=== PATIENT | female | born 1995 | race Caucasian/White ===

== ENCOUNTER 2021-11-17 15:14 | Outpatient (CLI) | payer BC, SELFPAY ==
[2021-11-17 17:23] LABS: Hepatitis B Surface Antigen* Negative (Negative)
[2021-11-17 17:33] LABS: HIV 1/2/P24 Combo Screen* Negative (Negative)
[2021-11-17 17:40] LABS: Hepatitis C Virus Antibody* Negative (Negative)
[2021-11-17 19:52] LABS: Chlamydia DNA Amplified* NOT DETECTED (No Detected); GC DNA Amplified* NOT DETECTED (No Detected)
[2021-11-19 18:50] LABS: Rapid Plasma Reagin (RPR) Non Reactive (Non Reactive)
[2021-11-19 23:35] LABS: Rubella Antibody IgG 15.8 IU/mL
== END 2021-11-17 15:15 | disposition home or self-care (01) ==
PROVIDERS: Visit Provider Advanced Practice Midwife
DX: Z34.91 Encounter for supervision of normal pregnancy, unspecified, first trimester (principal); Z3A.08 8 weeks gestation of pregnancy
CPT/HCPCS: 76817; 86592; 86703; 86762; 86787; 86803; 86850; 86900; 86901; 87086; 87340; 87491; 87591

== ENCOUNTER 2022-02-09 12:49 | Outpatient (CLI) | payer BC, SELFPAY ==
--- NOTE | 2022-02-09 13:00 | CRLHL7_ITS ---
For Patients: As a result of the Century Cures Act, medical imaging exams and procedure reports are released immediately into your electronic medical record. You may view this report before your referring provider. If you have questions, please contact your health care provider. INDICATION: Evaluate anatomy. COMPARISON: 11/17/2021 TECHNIQUE: Real time adams scale imaging of the fetus was performed as well as color Doppler analysis of the umbilical vessels. FINDINGS: Sonographic imaging demonstrates a single living intrauterine gestation. Fetus demonstrates a regular cardiac rate of 157 beats per minute. Fetus has a variable position. The placenta lies fundal without evidence of placenta previa. The tip of the placenta is 14.2 cm from the internal cervical os. Amniotic fluid volume appears normal. Single deepest vertical pocket: 5.6 cm. The cervix is closed and measures 4.0 cm in length. The composite ultrasound gestational age is calculated at 20 weeks 1 day with an estimated sonographic due date of 06/28/2022. The estimated weight is 350 grams which lies at the 42nd %. The following biometric measurements were obtained: Biparietal diameter: 4.9 cm/20 weeks 6 days 68th% Head circumference: 17.5 cm/20 weeks 0 days 25th% Abdominal circumference: 15.0 cm/20 weeks 2 days 38th% Femur length: 3.4 cm/20 weeks 4 days 46th% The HC/AC ratio measures: 1.17 range (1.07-1.25) On anatomic survey, there is a normal appearance of the cerebral ventricles, cavum septi pellucidi, cisterna magna and cerebellum. The nose, lips, and facial profile appear normal. The cervical, thoracic and lumbar spine are well visualized and appear normal. There is a normal four-chamber heart view and the left and right ventricular outflow tracts appear normal. The diaphragm and stomach appear normal. The kidneys and bladder also appear normal. There is a normal three-vessel cord and cord insertion site. The four extremities appear normal. IMPRESSION: Normal OB ultrasound exam with concordance of clinical and sonographic dating. No intrinsic abnormalities noted on anatomic survey. Dictated by Elio Key MD @ 02/10/2022 9:53:26 AM (Electronically Signed)
== END 2022-02-09 12:50 | disposition home or self-care (01) ==
LOC: US 12:50
PROVIDERS: Visit Provider Obstetrics & Gynecology
DX: Z34.92 Encounter for supervision of normal pregnancy, unspecified, second trimester (principal); Z3A.20 20 weeks gestation of pregnancy
CPT/HCPCS: 76805

== ENCOUNTER 2022-04-10 10:59 | Outpatient (CLI) | payer BC, SELFPAY ==
[2022-04-12 07:58] LABS: Rapid Plasma Reagin (RPR) Non Reactive (Non Reactive)
== END 2022-04-10 11:00 | disposition home or self-care (01) ==
LOC: NFLDREF 11:00
PROVIDERS: Visit Provider Obstetrics & Gynecology
DX: Z34.90 Encounter for supervision of normal pregnancy, unspecified, unspecified trimester (principal)
CPT/HCPCS: 86592

== ENCOUNTER 2022-05-05 08:13 | Outpatient (CLI) | payer BC, SELFPAY ==
--- NOTE | 2022-05-05 08:15 | CRLHL7_ITS ---
For Patients: As a result of the Cures Act, medical imaging exams and procedure reports are released immediately into your electronic medical record. You may view this report before your referring provider. If you have questions, please contact your health care provider. INDICATION: GROWTH, COVID IN COMPARISON: 02/09/2022 TECHNIQUE: Real time adams scale imaging of the fetus was performed. FINDINGS: Sonographic imaging demonstrates a single living intrauterine gestation. Fetus demonstrates a regular cardiac rate of 152 beats per minute. Fetus has a breech position. The placenta lies anteriorly. Amniotic fluid volume appears normal and there is a single deepest vertical pocket: 5.8 cm. The estimated weight is 1996gm which lies at the 39th %. On the prior OB ultrasound exam dated 02/09/2022 the estimated weight was at the 42nd%. BPD 32nd percentile. HC 18th percentile. AC 44th percentile. FL 45th percentile. The HC/AC ratio measures 1.04 range (0.96-1.12). IMPRESSION: Sonographic gestational age 32 weeks 4 days and sonographic due date of 06/26/2022. Good correlation with dates. Normal interval growth. Estimated weight 39th percentile. Abdominal circumference 44th percentile. Dictated by Elio Key MD @ 05/05/2022 11:10:41 AM (Electronically Signed)
== END 2022-05-05 08:14 | disposition home or self-care (01) ==
LOC: US 08:13
PROVIDERS: Visit Provider Obstetrics & Gynecology
DX: O98.513 Other viral diseases complicating pregnancy, third trimester (principal); U07.1 COVID-19; Z3A.32 32 weeks gestation of pregnancy
CPT/HCPCS: 76816

== ENCOUNTER 2022-06-02 13:00 | Outpatient (CLI) | payer BC, SELFPAY ==
--- NOTE | 2022-06-02 13:00 | CRLHL7_ITS ---
For Patients: As a result of the Century Cures Act, medical imaging exams and procedure reports are released immediately into your electronic medical record. You may view this report before your referring provider. If you have questions, please contact your health care provider. INDICATION: Growth, COVID in COMPARISON: 05/05/2022 TECHNIQUE: Real time adams scale imaging of the fetus was performed. FINDINGS: Sonographic imaging demonstrates a single living intrauterine gestation. Fetus demonstrates a regular cardiac rate of 157 beats per minute. Fetus has a breech position. The placenta lies anteriorly. Amniotic fluid volume appears normal and there is a single deepest vertical pocket: 6.7 cm. KITTY 20.7 cm. The estimated weight is 2941gm which lies at the 51st %. On the prior OB ultrasound exam dated 05/05/2022 the estimated weight was at the 39th%. BPD 41st percentile. HC 67th percentile. AC 78th percentile. FL 5th percentile. The HC/AC ratio measures 1.01 range (0.92-1.07). IMPRESSION: Sonographic gestational age 36 weeks 3 days and sonographic due date of 06/27/2022. Good correlation with dates. Normal interval growth. Estimated weight 51st percentile. Abdominal circumference 78th percentile. Dictated by Elio Key MD @ 06/02/2022 2:01:59 PM (Electronically Signed)
== END 2022-06-02 13:01 | disposition home or self-care (01) ==
LOC: US 13:01
PROVIDERS: Visit Provider Obstetrics & Gynecology
DX: O98.513 Other viral diseases complicating pregnancy, third trimester (principal); U07.1 COVID-19; Z3A.36 36 weeks gestation of pregnancy
CPT/HCPCS: 76816; 87081; 87653

== ENCOUNTER 2022-06-06 07:59 | Outpatient (CLI) | payer BC, SELFPAY ==
[2022-06-06 10:05] VITALS: PULSE 89; O2SAT 100
[2022-06-06 10:21] VITALS: BP 107/62; PULSE 82; PULSE 89; RESP 16; TEMP 37.2; O2SAT 100
--- NOTE | 2022-06-06 11:26 | PC.OBNST ---
NST Note NST Note Start: 06/06/22 10:01 Freq: ONCE Status: Active Protocol: Document 06/06/22 11:20 CUDDYH (Rec: 06/06/22 11:26 CUDDYH [id number]) NST Note 4 Para (# of births) 2 EDC 06/26/22 Gestational Age In Weeks & Days 37 Weeks & 1 Days Patient Presented with Complaint(s) of Other Other Complaints Here for scheduled cephalic version. Baby already flipped head down. Reactive Yes Appropriate for Gestational Age Yes RN Erendira Keen RN Date 06/06/22 Reactive Yes Appropriate for Gestational Age Yes BRYON Shea RNC Date 06/06/22 OB NST charge Yes Complete NST Note via Write Note Yes The provider's electronic signature indicates the NST is reactive/appropriate for gestational age. *Note to provider: If an addendum is required, open the patient's chart and click on the note under the Nurse/Allied Health tab.
== END 2022-06-06 11:20 | disposition home or self-care (01) ==
LOC: OB CLI 08:09 → OB 08:11
PROVIDERS: Visit Provider Obstetrics & Gynecology
DX: Z34.93 Encounter for supervision of normal pregnancy, unspecified, third trimester (principal)
CPT/HCPCS: 59025; 76815; 99211

== ENCOUNTER 2022-07-02 16:45 | Inpatient (IN) | payer BC, SELFPAY ==
[2022-07-02 16:50] VITALS: BMI 25.4
[2022-07-02 17:04] VITALS: BP 124/70; PULSE 86
[2022-07-02 17:05] VITALS: PULSE 88; O2SAT 96
[2022-07-02 17:06] VITALS: RESP 16; TEMP 37
--- NOTE | 2022-07-02 17:40 | W.PM.LDBA ---
Subjective History of Present Illness Time Seen by Provider: 17:40 Date Seen: 07/02/22 Narrative: Patient is being admitted to Labor and Delivery for induction of labor secondary to postdates gestation. She is a 27 year old at 40 6/7 weeks gestation. Her full history and physical was dictated on 06/21/2022 by VALERIA Case supervised by Josseline Renee CNM. Please see this for details. OB Problem List: 1. Nausea and vomiting. Unisom and Vit B6 no longer working. Zofran ordered at [facility]. 2. 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 Tearful about it at [facility] but declines therapy referral at this time. 3. Covid in , Growth u/s 32w: Breech. BPD 32%, HC 18%, AC 44%, FL 45 %, EFW 39% 36w: Breech. EFW 50.5% 4. Anemia, with Hb 10.8 at 29 weeks. Begin ferrous sulfate. 36wk Hgb = 11.1 5. Breech at 36 week US, RESOLVED ECV scheduled for 06/06: not done, baby cephalic on admission OB - Problem Based A/P Additional Plan (1) Post-dates : Status: Acute Plan The patient is esme irregularly, and has had documented cervical change since her last examination on Sunday. She no longer needs cervical ripening. Will manage expectantly overnight and begin pitocin infusion in the band saw operator. GBS negative. Blood type B positive. Delivery/Labor/Induction Plan Plan: induction (Begin pitocin infusion per protocol at 5:00 am.) Induction method: per pitocin protocol OB Exam Physical Exam Vital signs: Temp Pulse Resp BP Pulse Ox 98.6 F 86 16 124/70 96 07/02/22 17:06 07/02/22 17:04 07/02/22 17:06 07/02/22 17:04 07/02/22 17:05 Detailed Labor and Delivery Exam Patient Gravid: Yes Dilation (cm): 3 Effacement (%): 80 Cervix position: mid Consistency: soft Cervical ripeness score: 9 Contraction Frequency: irregular Contraction duration (sec): 60 Tachysystole: No Contraction intensity: Mild Fetus (Single) Station: -2 Amniotic Membrane Status: intact Heart Rate Baseline: 155 Monitor Accelerations: Present Monitor Decelerations: None Bridal Stylist Sales Consultant Variability: Moderate (6-25)
[2022-07-02 18:19] LABS: SARS PCR* Negative SARS-CoV-2 (Negative)
[2022-07-02 21:24] VITALS: BP 123/76; PULSE 83; RESP 16; TEMP 36.8
[2022-07-03] VITALS (40 sets, daily range): BP systolic 101–134; BP diastolic 55–79; PULSE 66–166; RESP 16; TEMP 36.5–37.3; O2SAT 91–100
[2022-07-03 05:21] LABS: Basophils Absolute Auto 0.01 K/uL (0.00-0.30); Basophils Percent Auto 0.1 % (0.0-3.0); Eosinophils Absolute Auto 0.22 K/uL (0.00-0.50); Eosinophils Percent Auto 3.2 % (0.0-7.0); Hematocrit 33.6 % (33.0-51.0); Hemoglobin* 11.3 gm/dL (12.0-16.0); Immature Granulocytes Abs Auto 0.02 K/uL (0.00-0.30); Immature Granulocytes Pct Auto 0.3 %; Lymphocytes Absolute Auto 1.66 K/uL (0.90-2.90); Lymphocytes Percent Auto 24.2 % (20-44); Mean Corpuscular HGB Conc 34 gm/dL (32-36); Mean Corpuscular Hemoglobin 28 pg (26-34); Mean Corpuscular Volume 83 fL (80-100); Monocytes Percent Auto 8.6 % (0.0-11.0); Neutrophils Absolute Auto 4.37 K/uL (1.7-7.0); Neutrophils Percent Auto 63.6 % (42.0-72.0); Platelet Count* 226 K/uL (140-440); Red Blood Count 4.05 m/uL (4.00-5.20); White Blood Count* 6.87 K/uL (4.50-11.00)
[2022-07-03 05:23] LABS: Slide Review Reflex No
[2022-07-03] MEDS: OXYTOCIN 30 unit/500 ML in NS 30 UNIT/500 ML BAG IVPB (05:28)
[2022-07-03] MEDS: LACTATED RINGERS 1000 ML 1,000 ML 125 ML IV ×2 (05:28→07:15)
--- NOTE | 2022-07-03 08:14 | PM.OBPNL ---
Subjective Time Seen by Provider: 07:45 Date Seen: 07/03/22 Objective Vital Signs: Last Vital Signs Temp 97.7 F 07/03/22 06:25 Pulse 86 07/03/22 06:25 Resp 16 07/03/22 06:25 BP 108/73 07/03/22 06:25 Pulse Ox 96 07/02/22 17:05 Pelvic Exam Dilation (cm): 3 Effacement (%): 75 Station: -2 Contractions Contraction intensity: Mild Assessment Station: -2 Heart Rate Baseline: 155 Monitor Accelerations: Present Monitor Decelerations: None Plan Plan: - Pitocin was started around 0530. Patient was at 2u but this was stopped due to some late deceleration. - Late decelerations resolved with IV bolus and repositioning. Patient is comfortable and not esme much without pitocin. She was asking about AROM as her previous babies were delivered within a few hours after AROM. - I checked her cervix and found head to be right oblique and compound presentation. digits were palpated on cervical exam. Digits were swept away away but still very close to head when assessed with ultrasound - Discussed with patient that fetus is not in an ideal position for AROM at this point. Will place her on left lateral decubitus position and restart pitocin again. - Will recheck in 4 hours
[2022-07-03] MEDS: LACTATED RINGERS 1000 ML 1,000 ML 500 ML IV (11:50)
[2022-07-03] MEDS: ROPIVACAINE 0.2% 100 ml 100 ML 12 MG EPIDURAL (12:31)
--- NOTE | 2022-07-03 12:36 | PM.ANBPRC ---
[facility] Medical History No significant past medical history Normal spontaneous vaginal delivery ?O80 - Encounter for full-term uncomplicated delivery (ICD-10) Pruritic urticarial papules and plaques of ?O26.86 - Pruritic urticarial papules and plaques of (PUPPP) (ICD-10) Second degree perineal laceration, delivered, current hospitalization ?O70.1 - Second degree perineal laceration during delivery (ICD-10) Spontaneous ?O03.9 - Complete or unspecified spontaneous without complication (ICD-10) Surgical History No history of previous surgery Family History Mother Endometrial cancer Maternal Grandfather CHF (congestive heart failure) Sister Healthy adult Sister Healthy adult Brother Healthy adult Father Healthy adult Social History Narrative: Does not drink alcohol Does not use illicit drugs Non-smoker SOCIAL?? Education:? bachelors?? 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 Partner: Edu - contractor and real estate? Lives with:? and kids?? Pets: none? Abuse:? Denies past/present?? Special Diet: Denies Ok with a blood transfusion:?yes?? Culture or jehovah's witness beliefs:? denies? RISK FACTORS?? Exercise Times/wk: lifting weights and running. nothing in the last few weeks due to nausea?? Depression/Anxiety: denies DREAD: 1??? PHQ 9: 4 Seat Belt Use: Routinely?? Smoking:? Denies past/present?? Alcohol/day:? Denies while ?? Caffeine:? currently only drinking decaf Drug Use: Denies past/present?? Chicken Pox:? Yes as a child?? MRSA:? Denies? Planning to breastfeed:?? yes, breastfed her other kids. Declines complications but both were tongue tied.?? Are you following a diet prescribed by a doctor: No Are you following a special diet: No Previous occupational history: therapy teacher Highest level of school completed/degree received: Bachelor's degree Smoking Status: Never smoker Second hand tobacco smoke exposure: No Non-prescribed substance use: denies use Caffeine: No (currently drinking decaf) Little interest or pleasure in doing things: not at all Feeling down, depressed, or hopeless: not at all Meds Home Medications and Allergies Home Medications Medication Instructions Recorded Confirmed Type aspirin 81 mg capsule 81 mg PO QDAY 05/15/22 07/02/22 History famotidine 20 mg tablet 20 mg PO QDAY 05/15/22 07/02/22 History pediatric multivitamin no.17 1 tab PO DAILY 06/02/22 07/02/22 History (Children's Chew Multivitamin tablet) Allergies Allergy/AdvReac Type Severity Reaction Status Date / Time amoxicillin Allergy Mild Rash Verified 06/28/22 09:15 metoclopramide AdvReac Intermediate Dystonia Verified 06/28/22 09:15 Results Labs Labs: Laboratory Results - last 24 hr 07/02/22 07/03/22 17:35 05:10 WBC 6.87 RBC 4.05 Hgb 11.3 L Hct 33.6 MCV 83 MCH 28 MCHC 34 RDW Coeff of Franc 13.0 Plt Count 226 Neut % (Auto) 63.6 Lymph % (Auto) 24.2 Bollinger % (Auto) 8.6 Eos % (Auto) 3.2 Baso % (Auto) 0.1 Neut # (Auto) 4.37 Lymph # (Auto) 1.66 Bollinger # (Auto) 0.60 Eos # (Auto) 0.22 Baso # (Auto) 0.01 SARS-CoV-2 (PCR) Negative SARS-CoV-2 Blood Type B Positive Antibody Screen NEGATIVE Vital Signs Vital Signs: Last Vital Signs Temp 98.1 F 07/03/22 12:14 Pulse 77 07/03/22 12:34 Resp 16 07/03/22 06:25 BP 111/59 L 07/03/22 12:34 Pulse Ox 100 07/03/22 12:31 Weight: 69.445 kg Height: 165.1 cm Anesthesia Procedures Epidural Insertion Start Time: 12:15 Stop Time: 13:15 Start Date: 07/03/22 Stop Date: 07/03/22 Reason for Block: procedure for pain Patient Position: sitting Performed By: Morro Carrillo Preanesthetic Checklist: IV checked, risks and benefits discussed, monitors and equipment checked, timeout performed and anesthesia consent Prep: DuraPrep Monitoring: blood pressure monitoring, continuous pulse oximetry and heart rate Approach: midline Vertebral Space: lumbar (1-5) Needle Type: Tuohy needle Injection Technique: continuous catheter Needle gauge: 17 Needle Length (cm): 10 cm Needle Insertion Depth (cm): 6 Catheter Gauge: 19 Catheter Type: multi-orifice Catheter at skin depth (cm): 10 Test Dose Result: negative and lidocaine 1.5% with epinephrine 1 to 200,000
[2022-07-03] MEDS: PHENYLEPHRINE 100 MCG/ML SYRINGE IVP (13:40)
--- NOTE | 2022-07-03 14:19 | W.PM.VAGDEL1 ---
Procedure Delivery date: 07/03/22 Procedure Done: Global Procedure Details: Courtney is a 27 year-old admitted on 07/02/2022 at 40 and 6/7 weeks gestation for elective induction of labor. Cervical exam on admission was 3 cm/80 % effaced/-3 station with membranes intact in vertex presentation. GBS neg. SROM occurred at 0825 on 07/03/2022 with clear fluid. There was a forebag noted at 1447, this was ruptured and thin meconium was noted at this time. Labor Analgesia: Epidural Pitocin: Yes Complete: 07/03/22 at 1348 Pushin07/03/22 at 1355 heart tones during second stage were cat II with intermittent variable and late deceleration during contractions At 1359 a viable female delivered in vertex OA presentation over intact perineum via spontaneous vaginal delivery. was placed on maternal abdomen. Cord was clamped and cut after a 30-60 second delay. Nose and mouth were bulb suctioned. Infant weight: Pending. 8 at 1 minute and 8 at 5 minutes. Shoulder dystocia: No. Nuchal cord: Yes/1 loop, reduced. Placenta delivered spontaneously and complete at 1401 with a 30 vessel cord. Placenta noted to have double membrane layer, will send for pathology. Complications: None. Mother and were stable after delivery. Laceration(s): 1st degree perineal, repaired with 2-0 chromic figure of 8. Estimated blood loss: 50 mL. Sponge and needles counts are correct. Mother and were stable at the time of this note.
[2022-07-04 04:30] VITALS: BP 106/70; PULSE 74; RESP 16; TEMP 37; O2SAT 95
[2022-07-04 07:03] LABS: Hemoglobin* 11.3 gm/dL (12.0-16.0)
[2022-07-04 08:03] VITALS: BP 104/64; PULSE 75; RESP 16; TEMP 36.4; O2SAT 97
--- NOTE | 2022-07-04 09:32 | PM.OBDSVD1 ---
DS: Providers Provider Date Seen: 07/04/22 Date of admission: 07/02/22 16:45 Primary care physician: Not a Local Provider Admitting Clinician: Tonya Elizalde MD Attending Physician on discharge: Josseline Renee CNM DS: Diagnosis Discharge Diagnosis (1) care and examination immediately after delivery: Status: Acute (2) Lactating mother: Status: Acute Exam Narrative: Exam Narrative: GENERAL APPEARANCE:? normal affect, alert, no distress MOOD:? appropriate CHEST:? clear to auscultation HEART:? regular rate and rhythm ABDOMEN:? soft, non-tender the uterine fundus is At Umbilicus, Midline and is appropriate for the stage of recovery. PERINEUM:? mild edema of the perineum, there is a Perineal Laceration,?1st degree, that is healing well. EXTREMITIES:? normal and no edema Const: Vital Signs, click to edit/add: Vital Signs - 24 hr 07/03/22 10:10 07/03/22 10:10 07/03/22 11:09 Temperature 98.2 F Pulse Rate 75 68 Pulse Rate [Left P ulse Oximeter] Respiratory Rate Blood Pressure 121/68 107/63 Blood Pressure [Ri ght Arm] Pulse Oximetry Oxygen Delivery Me thod 07/03/22 11:09 07/03/22 12:14 07/03/22 12:14 Temperature 98.1 F 98.1 F Pulse Rate 74 Pulse Rate [Left P ulse Oximeter] Respiratory Rate Blood Pressure 134/71 Blood Pressure [Ri ght Arm] Pulse Oximetry Oxygen Delivery Me thod 07/03/22 12:16 07/03/22 12:18 07/03/22 12:21 Temperature Pulse Rate Pulse Rate [Left P ulse Oximeter] Respiratory Rate Blood Pressure Blood Pressure [Ri ght Arm] Pulse Oximetry 100 91 100 Oxygen Delivery Me thod 07/03/22 12:26 07/03/22 12:27 07/03/22 12:28 Temperature Pulse Rate 84 90 Pulse Rate [Left P ulse Oximeter] Respiratory Rate Blood Pressure 119/57 L 122/59 L Blood Pressure [Ri ght Arm] Pulse Oximetry 100 91 Oxygen Delivery Me thod 07/03/22 12:30 07/03/22 12:31 07/03/22 12:32 Temperature Pulse Rate 74 80 Pulse Rate [Left P ulse Oximeter] Respiratory Rate Blood Pressure 116/55 L 116/60 Blood Pressure [Ri ght Arm] Pulse Oximetry 100 Oxygen Delivery Md thod 07/03/22 12:34 07/03/22 12:36 07/03/22 12:38 Temperature Pulse Rate 77 77 78 Pulse Rate [Left P ulse Oximeter] Respiratory Rate Blood Pressure 111/59 L 108/55 L 109/58 L Blood Pressure [Ri ght Arm] Pulse Oximetry Oxygen Delivery Md thod 07/03/22 12:40 07/03/22 12:46 07/03/22 12:50 Temperature Pulse Rate 75 68 67 Pulse Rate [Left P ulse Oximeter] Respiratory Rate Blood Pressure 109/61 111/57 L 112/60 Blood Pressure [Ri ght Arm] Pulse Oximetry Oxygen Delivery Md thod 07/03/22 12:56 07/03/22 13:01 07/03/22 13:14 Temperature Pulse Rate 72 75 75 Pulse Rate [Left P ulse Oximeter] Respiratory Rate Blood Pressure 101/55 L 108/63 106/59 L Blood Pressure [Ri ght Arm] Pulse Oximetry Oxygen Delivery Md thod 07/03/22 13:23 07/03/22 13:32 07/03/22 13:42 Temperature Pulse Rate 66 68 72 Pulse Rate [Left P ulse Oximeter] Respiratory Rate Blood Pressure 112/65 102/59 L 122/74 Blood Pressure [Ri ght Arm] Pulse Oximetry Oxygen Delivery Md thod 07/03/22 14:02 07/03/22 14:12 07/03/22 14:22 Temperature Pulse Rate 75 76 77 Pulse Rate [Left P ulse Oximeter] Respiratory Rate Blood Pressure 123/76 118/69 120/72 Blood Pressure [Ri ght Arm] Pulse Oximetry Oxygen Delivery Md thod 07/03/22 14:32 07/03/22 14:43 07/03/22 14:52 Temperature Pulse Rate 72 80 166 H Pulse Rate [Left P ulse Oximeter] Respiratory Rate Blood Pressure 114/71 118/67 129/79 Blood Pressure [Ri ght Arm] Pulse Oximetry Oxygen Delivery Md thod 07/03/22 15:02 07/03/22 15:12 07/03/22 15:22 Temperature Pulse Rate 74 70 72 Pulse Rate [Left P ulse Oximeter] Respiratory Rate Blood Pressure 119/65 117/67 114/65 Blood Pressure [Ri ght Arm] Pulse Oximetry Oxygen Delivery Me thod 07/03/22 15:32 07/03/22 15:51 07/03/22 19:59 Temperature 97.8 F Pulse Rate 87 95 Pulse Rate [Left P ulse Oximeter] 90 Respiratory Rate 16 Blood Pressure 113/64 110/64 Blood Pressure [Ri ght Arm] 108/69 Pulse Oximetry 96 Oxygen Delivery Me thod Room Air 07/03/22 23:41 07/04/22 04:30 07/04/22 08:03 Temperature 98.7 F 98.6 F 97.6 F Pulse Rate Pulse Rate [Left P ulse Oximeter] 69 74 75 Respiratory Rate 16 16 16 Blood Pressure Blood Pressure [Ri ght Arm] 117/69 106/70 104/64 Pulse Oximetry 97 95 97 Oxygen Delivery Me thod Room Air Room Air Room Air OB - DS: Summary Hospital Course Hospital Course: Courtney is a 27 y.o. who was admitted to L & D for induction of labor for post-dates. ?She had an uncomplicated NVD.?The patient feels well. ?The pain is well controlled with current medications. ?She has no new complaints. ?She is breast feeding and reports things are going well.? the patient has done well.? Vitals have been stable.? She has remained afebrile.? Has a good appetite, is tolerating a general diet. ?She is voiding without difficulty.? She is passing gas and has not had a bowel movement.? She is ambulating and denies any dizziness.? Has Small amount of rubra lochia. ?She is planning condoms for prevention. Peripartum Data Infant delivery method: Vaginal Laceration description: Perineal - 1st Degree complications: none [place] Gender: Female Discharge Plan: Home Status at Discharge Functional status at discharge: independent ambulation Overall status at discharge: patient is progressing back to baseline Time Spent with Patient Time attestation: Total time spent providing and/or coordinating discharge services: Discharge Plan Discharge Disposition: Home, Self-Care Date of Admission: 07/02/22 16:45 Attending Provider on Discharge: Josseline Renee Primary Care Provider: Provider,Not a Local Condition: Stable Anticipated Discharge Date/Time: 07/04/22 14:00 Discharge Medications: New acetaminophen 500 mg Tablet 1,000 mg PO Q6H PRNQty: 0 0RF docusate sodium 100 mg Capsule 100 mg PO DAILY Qty: 0 0RF ibuprofen 600 mg Tablet 600 mg PO Q6H PRNQty: 0 0RF Continued famotidine 20 mg tablet 20 mg PO QDAY Children's Chew Multivitamin Tablet,Chewable 1 tab PO DAILY Discontinued aspirin 81 mg capsule 81 mg PO QDAY ondansetron HCl 4 mg tablet 4 mg PO Q8H PRN (Reason: nausea and vomiting) Qty: 60 1RF Discharge Orders: Discharge Order (Routine); Ordered 07/04/22 Ordered By: Josseline Renee Patient Education: OB Over the Counter Medication Information, OB Vaginal/Breast Feeding Additional Instructions: Discharge instructions were reviewed with the patient including signs and symptoms of infection and home going medications Nothing vaginally for 6 weeks: no tampons or intercourse Off Work or School for 6 weeks 2-week visit: discuss infant feeding concerns, review control options and screen for anxiety/depression. 6-week visit for an annual exam. consultation services are available to all mothers and babies for the first year after delivery.? To make an appointment, please call [phone]. Activity Level: Activity as Tolerated Discharge Diet: Regular Follow Up Appointments: [facility] [Provider Group] Forms: [employer] Info Instructions
[2022-07-04 11:35] VITALS: BP 108/68; PULSE 80; RESP 16; TEMP 36.4; O2SAT 97
== END 2022-07-04 15:00 | disposition home or self-care (01) | DRG 560 ==
PROVIDERS: Obstetrics & Gynecology; Admitting Provider Obstetrics & Gynecology; Visit Provider Obstetrics & Gynecology
DX: O48.0 Post-term pregnancy (principal); O70.0 First degree perineal laceration during delivery; Z3A.40 40 weeks gestation of pregnancy; Z37.0 Single live birth
CPT/HCPCS: 01967; 36415; 76815; 85018; 85025; 86850; 86900; 86901; 87635; J2370; J2795; J7120; S0020